=== PATIENT | male | born 1980 | race Caucasian/White ===

== ENCOUNTER 2016-08-30 09:26 | Emergency (ER) | payer BC ==
[~2016-08-30] VITALS: Ht 175.3 cm; Wt 99.8 kg
[2016-08-30] MEDS ORDERED: NS IV 1000 ML 1,000 ML IV SCH (11:00)
[2016-08-30] MEDS ORDERED: DEXAMETHASONE PF 10 MG/ML (DECADRON) VIAL IV ONE (11:00)
[2016-08-30] MEDS ORDERED: KETOROLAC 30 MG/ML VIAL IVP ONE (11:00)
--- NOTE | 2016-08-30 11:02 | ED EENT ---
History of Present Illness General Chief Complaint: Oral/Throat Problems Stated Complaint: ABCESS ON INSIDE OF THROAT Source: patient Exam Limitations: no limitations History of Present Illness Time seen by provider: 11:01 Initial Comments To ER with a sore throat since Thursday the of this month. He was seen at [facility] mentally had an abscess in his throat given a shot of penicillin yesterday.. Today pain is worsened. Diffuse body aches, fevers or intermittent. Timing/Duration: gradual Severity: moderate Location: throat Prearrival Treatment: prescription meds Associated Symptoms: denies symptoms Allergies and Home Medications Allergies Coded Allergies: acetaminophen (Verified Allergy, Unknown, 08/30/16) hydrocodone (Verified Allergy, Unknown, 08/30/16) Home Medications No Active Prescriptions or Reported Meds Review of Systems Constitutional: see HPI Eyes: No Symptoms Reported Ears: No Symptoms Reported Nose: no symptoms reported Mouth: no symptoms reported Throat: see HPI Respiratory: no symptoms reported Cardiovascular: no symptoms reported Musculoskeletal: no symptoms reported Past Cihtbcy-Pyfkmx-Wpgwrt Hx Patient Social History Recent Foreign Travel: No Contact w/Someone Who Travel: No Physical Exam Vital Signs Vital Sign - Last 12Hours 08/30/16 10:45 Temp 97.8 Pulse 102 Resp 18 B/P (MAP) 142/99 Pulse Ox 96 General Appearance: WD/WN, no apparent distress Eyes: bilateral eye EOMI, bilateral eye PERRL, bilateral eye normal inspection Ears: bilateral ear TM normal, bilateral ear auricle normal, bilateral ear canal normal Mouth/Throat: No maxillary swelling, No pharynx swelling, pharynx tenderness, No tongue swollen, tonsillar exudate, tonsillar swelling, trismus, No uvula swelling Neck: non-tender, full range of motion Cardiovascular: regular rate, rhythm, no murmur Neurologic/Psychiatric: alert, normal mood/affect, oriented x 3 Skin: normal color, warm/dry There is no uvular deviation or any evidence on exam of peritonsillar abscess. Progress/Results/Core Measures Results/Orders Lab Results Laboratory Tests Test 08/30/16 10:50 Range/Units White Blood Count 14.8 H 4.3-11.0 10^3/uL Red Blood Count 5.49 4.35-5.85 10^6/uL Hemoglobin 16.2 13.3-17.7 G/DL Hematocrit 48 40-54 % Mean Corpuscular Volume 88 80-99 FL Mean Corpuscular Hemoglobin 30 25-34 PG Mean Corpuscular Hemoglobin Concent 34 32-36 G/DL Red Cell Distribution Width 13.6 10.0-14.5 % Platelet Count 221 130-400 10^3/uL Mean Platelet Volume 10.2 7.4-10.4 FL Neutrophils (%) (Auto) 75 42-75 % Lymphocytes (%) (Auto) 12 12-44 % Monocytes (%) (Auto) 12 0-12 % Eosinophils (%) (Auto) 1 0-10 % Basophils (%) (Auto) 0 0-10 % Neutrophils # (Auto) 11.1 H 1.8-7.8 X 10^3 Lymphocytes # (Auto) 1.8 1.0-4.0 X 10^3 Monocytes # (Auto) 1.8 H 0.0-1.0 X 10^3 Eosinophils # (Auto) 0.1 0.0-0.3 10^3/uL Basophils # (Auto) 0.0 0.0-0.1 10^3/uL Neutrophils % (Manual) 66 % Lymphocytes % (Manual) 13 % Monocytes % (Manual) 16 % Band Neutrophils 5 % Toxic Granulation 1+ Blood Morphology Comment NORMAL Sodium Level 138 135-145 MMOL/L Potassium Level 4.3 3.6-5.0 MMOL/L Chloride Level 104 98-107 MMOL/L Carbon Dioxide Level 22 21-32 MMOL/L Anion Gap 12 5-14 MMOL/L Blood Urea Nitrogen 12 7-18 MG/DL Creatinine 1.16 0.60-1.30 MG/DL Estimat Glomerular Filtration Rate > 60 BUN/Creatinine Ratio 10 Glucose Level 99 70-105 MG/DL Calcium Level 9.7 8.5-10.1 MG/DL Total Bilirubin 0.7 0.1-1.0 MG/DL Aspartate Amino Transf (AST/SGOT) 22 5-34 U/L Alanine Aminotransferase (ALT/SGPT) 52 0-55 U/L Alkaline Phosphatase 86 40-136 U/L Total Protein 7.9 6.4-8.2 G/DL Albumin 4.2 3.2-4.5 G/DL Monoscreen NEGATIVE NEGATIVE Group A Streptococcus Screen NEGATIVE NEGATIVE My Orders Orders - RICHARD MARROQUIN APRN Rapid Strep A Screen (08/30/16 10:59) Monotest (08/30/16 10:59) Cbc With Automated Diff (08/30/16 10:59) Comprehensive Metabolic Panel (08/30/16 10:59) Saline Lock/Iv-Start (08/30/16 10:59) Ct Neck (Soft Tissue) W (08/30/16 10:59) Ketorolac Injection (Toradol Injection) (08/30/16 11:00) Dexamethasone Pf Injection (Decadron Pf (08/30/16 11:00) Ns Iv 1000 Ml (Sodium Chloride 0.9%) (08/30/16 11:00) Iohexol Injection (Omnipaque 350 Mg/Ml 1 (08/30/16 11:15) Ns (Ivpb) (Sodium Chloride 0.9% Ivpb Bag (08/30/16 11:15) Manual Differential (08/30/16 10:50) Medications Given in ED Current Medications Medications Dose Ordered Sig/Haleigh Route Start Time Stop Time Status Last Admin Dose Admin Dexamethasone Sodium Phosphate 10 mg ONCE ONCE IV 08/30/16 11:00 08/30/16 11:01 DC 08/30/16 11:18 10 MG Iohexol 75 ml ONCE ONCE IV 08/30/16 11:15 08/30/16 11:17 DC 08/30/16 11:22 75 ML Ketorolac Tromethamine 30 mg ONCE ONCE IVP 08/30/16 11:00 08/30/16 11:01 DC 08/30/16 11:18 30 MG Sodium Chloride 100 ml ONCE ONCE IV 08/30/16 11:15 08/30/16 11:17 DC 08/30/16 11:22 80 ML Vital Signs/I&O Vital Sign - Last 12Hours 08/30/16 10:45 Temp 97.8 Pulse 102 Resp 18 B/P (MAP) 142/99 Pulse Ox 96 Diagnostic Imaging Diagonstic Imaging: CT Comments NAME: DERECK WHATLEY MED REC#: [id number] PT STATUS: REG ER : 1980 PHYSICIAN: RICHARD MARROQUIN APRN ADMIT DATE: 08/30/16/ER Draft Date of Exam:08/30/16 CT NECK (SOFT TISSUE) W PROCEDURE: CT neck soft tissue with contrast. TECHNIQUE: Multiple contiguous axial images were obtained through the neck after the administration of contrast. INDICATION: Fever. Possible throat mass COMPARISON: None FINDINGS: There is probable slight hyperemia and enlargement/prominence of the adenoid lymph tissue bilaterally which appears fairly symmetric, and there is some mild prominence of the palatine tonsils, likely related to tonsillitis/inflammatory process. No abscess is seen. There is no retropharyngeal soft tissue abnormality. The airway appears patent. The epiglottis appears normal. There are numerous prominent lymph nodes in the neck, likely reactive. The largest is seen along the right jugular chain measuring about 1.5 cm in short axis diameter. The lung apices appear unremarkable. The osseous structures appear unremarkable. IMPRESSION: 1. Findings are consistent with adenitis/tonsillitis without focal abscess 2. Enlarged lymph nodes in the neck are likely reactive but indeterminate. I would recommend short-term followup after appropriate therapy. 3. No additional abnormality is seen. Dictated on workstation # [id number] Dict: 08/30/16 1137 Trans: 08/30/16 1155 [facility] [id number] Interpreted by: NAHID CARBALLO DO Electronically signed by: Departure Impression Impression: Primary Impression: tonsillitis Disposition: HOME, SELF-CARE Condition: Stable Departure-Patient Inst. Decision time for Depature: 12:00 Referrals: [facility] (PCP) Primary Care Physician Patient Instructions: Sore Throat, Adult (DC) Add. Discharge Instructions: 1. Tylenol and Motrin for pain or fevers 2. Return to ER for any concerns 3. See your doctor later this week for any persistent discomfort All discharge instructions reviewed with patient and/or family. Voiced understanding. Scripts No Active Prescriptions or Reported Meds Work/School Note: Work Release Form Date Seen in the Emergency Department: August 30, 2016 Return to Work: September 01, 2016 RICHARD MARROQUIN APRN August 30, 2016 11:02
[2016-08-30 11:08] LABS: BASOPHILS % (AUTO) 0 % (0-10); EOSINOPHILS # (AUTO) 0.1 10^3/uL (0.0-0.3); EOSINOPHILS % (AUTO) 1 % (0-10); LYMPHOCYTES # (AUTO) 1.8 X 10^3 (1.0-4.0); LYMPHOCYTES % (AUTO) 12 % (12-44); MEAN CORPUSCULAR HEMOGLOBIN 30 PG (25-34); MEAN CORPUSCULAR HGB CONC 34 G/DL (32-36); MEAN CORPUSCULAR VOLUME 88 FL (80-99); MEAN PLATELET VOLUME 10.2 FL (7.4-10.4); MONOCYTES # (AUTO) 1.8 X 10^3 (0.0-1.0); MONOCYTES % (AUTO) 12 % (0-12); NEUTROPHILS # (AUTO) 11.1 X 10^3 (1.8-7.8); NEUTROPHILS % (AUTO) 75 % (42-75); PLATELET COUNT 221 10^3/uL (130-400); RED BLOOD COUNT 5.49 10^6/uL (4.35-5.85); RED CELL DISTRIBUTION WIDTH 13.6 % (10.0-14.5); WHITE BLOOD COUNT 14.8 10^3/uL (4.3-11.0)
[2016-08-30] MEDS ORDERED: IOHEXOL 350 MG/ML 100 ML (OMNIPAQUE 350) VIAL IV ONE (11:15)
[2016-08-30] MEDS ORDERED: NS 100 ML (IVPB) BAG IV ONE (11:15)
[2016-08-30 11:18] LABS: ALANINE AMINOTRANSFERASE 52 U/L (0-55); ALBUMIN 4.2 G/DL (3.2-4.5); ANION GAP 12 MMOL/L (5-14); ASPARTATE AMINO TRANSFERASE 22 U/L (5-34); BILIRUBIN,TOTAL 0.7 MG/DL (0.1-1.0); BLOOD UREA NITROGEN 12 MG/DL (7-18); BUN/CREATININE RATIO 10; CALCIUM 9.7 MG/DL (8.5-10.1); CARBON DIOXIDE 22 MMOL/L (21-32); CHLORIDE 104 MMOL/L (98-107); CREATININE SERUM 1.16 MG/DL (0.60-1.30); GFR ESTIMATED > 60; GLUCOSE 99 MG/DL (70-105); POTASSIUM 4.3 MMOL/L (3.6-5.0); SODIUM 138 MMOL/L (135-145); TOTAL PROTEIN 7.9 G/DL (6.4-8.2)
[2016-08-30 11:41] LABS: BAND NEUTROPHILS 5 %; LYMPHOCYTES % (MANUAL) 13 %; NEUTROPHILS % (MANUAL) 66 %
--- NOTE | 2016-08-30 11:55 | Diagnostic Imaging Report ---
PROCEDURE: CT neck soft tissue with contrast. TECHNIQUE: Multiple contiguous axial images were obtained through the neck after the administration of contrast. INDICATION: Fever. Possible throat mass COMPARISON: None FINDINGS: There is probable slight hyperemia and enlargement/prominence of the adenoid lymph tissue bilaterally which appears fairly symmetric, and there is some mild prominence of the palatine tonsils, likely related to tonsillitis/inflammatory process. No abscess is seen. There is no retropharyngeal soft tissue abnormality. The airway appears patent. The epiglottis appears normal. There are numerous prominent lymph nodes in the neck, likely reactive. The largest is seen along the right jugular chain measuring about 1.5 cm in short axis diameter. The lung apices appear unremarkable. The osseous structures appear unremarkable. IMPRESSION: 1. Findings are consistent with adenitis/tonsillitis without focal abscess 2. Enlarged lymph nodes in the neck are likely reactive but indeterminate. I would recommend short-term followup after appropriate therapy. 3. No additional abnormality is seen. Dictated by: Dictated on workstation # [id number]
[2016-08-30 12:13] VITALS: BP 140/82
== END 2016-08-30 12:13 | disposition home or self-care (01) ==
LOC: EDUNIT# 09:26 → ER 09:27
DX: J03.90 Acute tonsillitis, unspecified (principal); R59.0 Localized enlarged lymph nodes
CPT/HCPCS: 36415; 70491; 80053; 85007; 85027; 86308; 87430; 96361; 96374; 96375

== ENCOUNTER 2022-05-22 19:30 | Emergency (ER) | payer OTHER, BC ==
[~2022-05-22] VITALS: Ht 177 cm; Wt 93.0 kg
[2022-05-22] MEDS ORDERED: LIDOCAINE 1% INJ 20 ML VIAL INJ ONE (20:00)
[2022-05-22] MEDS ORDERED: LIDOCAINE 1% INJ 10 ML VIAL ONE (20:09)
[2022-05-22] MEDS ORDERED: RX-CEPHALEXIN (KEFLEX) 250 MG CAP PPK#4 PO STA (20:51)
[2022-05-22] MEDS ORDERED: CEPH500T PO (20:55)
--- NOTE | 2022-05-22 20:56 | ED Upper Extremity ---
General Chief Complaint: Laceration Stated Complaint: HAND LACERATION Nursing Triage Note: PT PRESENTS TO ED WITH LACERATION TO RIGHT HAND FROM HOTDOG ROLLER MACHINE. PRESSURE DRESSING APPLIED D/T SITE STILL BLEEDING. (VASQUEZ BAZZI) History of Present Illness Date Seen by Provider: May 22, 2022 Time Seen by Provider: 19:50 Initial Comments 41 year old male presents for laceration to right hand, first web space. He was helping in concessions when he touched the hotdog roller, lifted his hand fast and cut it on the cover. Immediate onset of bleeding and laceration noted. Believes last tetanus was within the last 5 years. No other injuries. Pain/Injury Location: right wrist Method of Injury: incised (VASQUEZ BAZZI) Allergies and Home Medications Allergies Coded Allergies: acetaminophen (Verified Allergy, Unknown, 08/30/16) hydrocodone (Verified Allergy, Unknown, 08/30/16) Patient Home Medication List Home Medication List Reviewed: Yes (VASQUEZ BAZZI) Cephalexin (Cephalexin) 500 Mg Tablet, 500 MG PO TID Prescribed by: VASQUEZ BAZZI on 05/22/222054 Review of Systems Constitutional: no symptoms reported, see HPI Skin: see HPI, other (laceration right hand) (VASQUEZ BAZZI) All Other Systems Reviewed Negative Unless Noted: Yes (VASQUEZ BAZZI) Past Olnvgcj-Prieei-Mugyyf Hx Family Medical History Reviewed Nursing Family Hx (VASQUEZ BAZZI) Physical Exam Vital Signs Vital Signs - First Documented 05/22/22 19:43 Temp 36.4 Pulse 99 Resp 18 B/P (MAP) 128/98 (108) Pulse Ox 96 O2 Delivery Room Air (BRITTON,RADHA K DO) Vital Signs Capillary Refill : (VASQUEZ BAZZI) Height, Weight, BMI Height: 5'9.00" Weight: 220lbs. oz. 99.313826cy; 29.00 BMI Method:Stated General Appearance: WD/WN, no apparent distress Cardiovascular: normal peripheral pulses, regular rate, rhythm Respiratory: chest non-tender, lungs clear, normal breath sounds Hand: Right, laceration (3.5 cm first web space), soft tissue tenderness Neurologic/Tendon: normal sensation, normal motor functions, normal tendon functions Neurologic/Psychiatric: no motor/sensory deficits, alert, normal mood/affect, oriented x 3 Skin: normal color, warm/dry (VASQUEZ BAZZI) Procedures/Interventions Wound Location: Upper Extremities (right hand) Wound Length (cm): 3.5 Wound's Depth, Shape: superficial Wound Explored: clean Irrigated w/ Saline (ccs): 500 Anesthesia: 1% Lidocaine Volume Anesthetic (ccs): 4 Suture: Ethlion Suture Size: 4-0 Number of Sutures: 4 Sterile Dressing Applied?: Yes (VASQUEZ BAZZI) Progress/Results/Core Measures Results/Orders Medications Given in ED Current Medications Medications Dose Ordered Sig/Haleigh Route Start Time Stop Time Status Last Admin Dose Admin Lidocaine HCl 10 ml STK-MED ONCE .ROUTE 05/22/22 20:09 05/22/22 20:11 DC 05/22/22 20:30 10 ML (RADHA JARQUIN DO) Vital Signs/I&O 05/22/22 05/22/22 19:43 21:13 Temp 36.4 Pulse 99 89 Resp 18 18 B/P (MAP) 128/98 (108) 120/76 Pulse Ox 96 97 O2 Delivery Room Air Room Air (RADHA JARQUIN DO) Blood Pressure Mean: 108 Departure Impression Primary Impression: Laceration of right hand Qualified Codes: S61.411A - Laceration without foreign body of right hand, initial encounter Disposition: 01 HOME, SELF-CARE Condition: Improved Departure-Patient Inst. Decision time for Depature: 20:15 (VASQUEZ BAZZI) Referrals: RANGEL NAVA DO (PCP/Family) Primary Care Physician Add. Discharge Instructions: Keep the dressing dry and in place for 24 hours, you may re-inforce if needed. Do not submerge the wound in standing water (tub, pool, sink, mariscal, etc). Leave sutures in place, return to Emergency Dept or your Primary Care Provider in 7-10 days for removal. You may shower, do not have water hit directly over wound. Clean with peroxide after shower, leave open to air when at home, cover with dressing or band-aid when out of the house. Watch for signs of infection: Redness, increased tenderness, warmth, discolored drainage or foul smelling drainage. Take Antibiotics, as prescribed. Return to the emergency department for new, urgent health care problems. All discharge instructions reviewed with patient and/or family. Voiced understanding. Scripts Cephalexin (Cephalexin) 500 Mg Tablet 500 MG PO TID, #15 TAB 0 Refills Prov: VASQUEZ BAZZI 05/22/22 ATTENDING PHYSICIAN NOTE: I WAS PHYSICALLY PRESENT ER PHYSICIAN, BUT I WAS NOT INVOLVED IN ANY DECISION MAKING OR ANY CARE OF THIS PATIENT, AND I AM NOT COLLABORATING PHYSICIAN. (RADHA JARQUIN DO) VASQUEZ BAZZI May 22, 2022 20:56 RADHA JARQUIN DO May 23, 2022 01:54
[2022-05-22 21:13] VITALS: BP 120/76
== END 2022-05-22 21:14 | disposition home or self-care (01) ==
LOC: EDUNIT# 19:30 → ER 19:33
DX: S61.411A Laceration without foreign body of right hand, initial encounter (principal); W31.89XA Contact with other specified machinery, initial encounter